=== PATIENT | male | born 1995 | race Caucasian/White ===

== ENCOUNTER 2016-04-11 12:00 | Inpatient (IN) | payer OTHER ==
[2016-04-11] MEDS ORDERED: Tetan/Diph/Pertus SYR(Tdap)* 0.5 ML SYR(BOOSTRIX) use SYR IM ONE (12:15)
[2016-04-11 13:16] LABS: Hematocrit 42 % (42-52); Hemoglobin 14.1 g/dl (14.0-18.0); Mean Corpuscular HGB Conc 34 g/dl (31-36); Mean Corpuscular Hemoglobin 30 pg (27-31); Mean Corpuscular Volume 88 fL (80-94); Mean Platelet Volume 8 um3 (7.4-10.4); Red Cell Distribution Width 14 % (10.5-15); White Blood Count 8.3 10^3/ul (3.5-10.8)
[2016-04-11 13:26] LABS: Urine Bilirubin Negative (Negative); Urine Glucose Negative (Negative); Urine Nitrite Negative (Negative)
[2016-04-11 13:34] LABS: ALT 23 U/L (7-52); AST 19 U/L (13-39); Albumin 4.3 g/dL (3.2-5.2); Alkaline Phosphatase 48 U/L (34-104); Anion Gap 3 mmol/L (2-11); BUN/Creatinine Ratio 22.5 (8-20); Blood Urea Nitrogen 20 mg/dL (6-24); CO2 Carbon Dioxide 28 mmol/L (22-32); Calcium 9.4 mg/dL (8.6-10.3); Chloride 106 mmol/L (101-111); EGFR African American 138.8 (>60); EGFR Non-African American 107.9 (>60); Globulin 2.4 g/dL (2-4); Glucose 101 mg/dL (70-100); Potassium 4.1 mmol/L (3.5-5.0); Sodium 137 mmol/L (133-145); Total Protein 6.7 g/dL (6.4-8.9)
[2016-04-11 13:45] LABS: Acetaminophen < 15 mcg/mL; Alcohol < 10 mg/dL (<10); Salicylate < 2.50 mg/dL (<30)
[2016-04-11 13:46] LABS: Benzodiazepine Urine Screen Presumptive Positive (None Detect)
[2016-04-11 13:55] LABS: TSH (Thyroid Stimulating Horm) 1.31 mcIU/mL (0.34-5.60)
[2016-04-11] MEDS ORDERED: ALPRAZolam TAB* 0.5 MG PO ONE ×2 (18:33→21:23)
[2016-04-11] MEDS ORDERED: Nicotine Inhaler* 10 MG AMP INH ONE (20:05)
[2016-04-11] MEDS ORDERED: Mouth Piece, Nicotine* 1 EACH CARTRIDGE ONE (20:09)
[2016-04-11] MEDS ORDERED: Mouth Piece, Nicotine* 1 EACH CARTRIDGE INH ONE (20:10)
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
[2016-04-11] MEDS ORDERED: Al Hydrox/Mg Hydrox/Simet LIQ* 30 ML UDC PO PRN (22:33)
[2016-04-11] MEDS ORDERED: Acetaminophen TAB* 325 MG PO PRN (22:33)
[2016-04-11] MEDS ORDERED: clonazePAM TAB(*) 0.5 MG ONE (22:36)
[2016-04-11] MEDS ORDERED: Nicotine GUM* 2 MG ONE (22:37)
[2016-04-11] MEDS ORDERED: Montelukast Sodium TAB* 10 MG ONE (22:37)
[2016-04-11] MEDS ORDERED: clonazePAM TAB(*) 1 MG ONE (22:37)
[2016-04-11] MEDS ORDERED: Nicotine Inhaler* 10 MG AMP ONE (22:37)
[2016-04-11] MEDS: Nicotine GUM* 2 MG PO PRN (22:38)
[2016-04-11] MEDS: Montelukast Sodium TAB* 10 MG PO SCH (22:38)
[2016-04-11] MEDS: clonazePAM TAB(*) 0.5 MG PO SCH (22:38)
[2016-04-11] MEDS: Nicotine Inhaler* 10 MG AMP INH PRN (23:47)
[2016-04-11] MEDS ORDERED: QUEtiapine TAB* 25 MG ONE (23:49)
[2016-04-12] MEDS: Nicotine Inhaler* 10 MG AMP INH PRN ×8 (02:20→23:25)
[2016-04-12] MEDS ORDERED: Influenza VAC *QUAD* 2016-17* 0.5 ML SYRINGE IM ONE (09:00)
[2016-04-12] MEDS: Divalproex ER TAB(*) 500 MG PO SCH (09:10)
[2016-04-12] MEDS: Vitamin THERAPEUTIC TAB PO SCH (09:10)
[2016-04-12] MEDS: FLUoxetine CAP* 20 MG PO SCH (09:11)
[2016-04-12] MEDS: clonazePAM TAB(*) 0.5 MG PO SCH ×3 (09:11→20:58)
[2016-04-12] MEDS ORDERED: Mouth Piece, Nicotine* 1 EACH CARTRIDGE ONE (09:28)
[2016-04-12] MEDS: Nicotine GUM* 2 MG PO PRN (13:43)
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
[2016-04-12] MEDS: Silver Sulfadiazine 1%* 20 GM TOPICAL SCH (20:46)
[2016-04-12] MEDS: Montelukast Sodium TAB* 10 MG PO SCH (20:58)
[2016-04-13 07:59] VITALS: BP 128/65
[2016-04-13] MEDS: clonazePAM TAB(*) 0.5 MG PO SCH (08:08)
[2016-04-13] MEDS: FLUoxetine CAP* 20 MG PO SCH (08:08)
[2016-04-13] MEDS: Divalproex ER TAB(*) 500 MG PO SCH (08:08)
[2016-04-13] MEDS: Vitamin THERAPEUTIC TAB PO SCH (08:09)
[2016-04-13] MEDS: Nicotine Inhaler* 10 MG AMP INH PRN ×2 (08:10→15:22)
[2016-04-13] MEDS: Silver Sulfadiazine 1%* 20 GM TOPICAL SCH (08:59)
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
--- NOTE | 2016-04-13 15:17 | DS ---
Subjective - Subjective Service Types: [address] [facility] Day Mgmt complex over 30 min Discharge Date: 04/13/16 Subjective: Giovany reports that he feels safe and ready for discharge in the setting of meeting with his mother, liaison planner Lorie Sonny and the undersigned. He denies any impulse toward SIB and denies any SI. He commits to aftercare plans to intake at [facility] [place], follow up on Monday with psychiatrist Dr Umana, and referral to a DBT group in this community. He says he will not seek benzodiazepines, stimulants or marijuana and will abstain from all of these. He reports that he had been selling the benzodiazepines he had received from Dr Ortega. He reports he had not been using them himself except for on a very occasional basis, about 2 to 2 1/2 mg total weekly dose of Xanax only. He reports that he will be forthcoming to his mother if he has any recurrence of urge to self-harm or any occurrence of thoughts to kill himself or any other dangerous intent or plan. He reports having a good supply on hand of all medications prescribed to him by Dr Umana (Depakote, Prozac and Zyprexa). In our meeting we discussed the likelihood that his psychiatric symptoms may be related to his TBI, and the need for him to be patient with himself and to develop strategies to offset the deficits that may have been produced by his TBI. We discussed in particular his tendency toward prevarication versus confabulation, and the need to identify and correct this behavior as it occurs without self-recrimination, which likely impedes its correction. He has agreed to surrender any lighters he has to reduce the likelihood of burning himself again. Objective - Appearance Appearance: Healthy Appearing Dysmorphic Features: No Hygiene: Normal Grooming: Well Kept - Behavior Psychomotor Activities: Normal Exhibits Abnormal Movement: No - Attitude and Relatedness Attitude and Relatedness: Cooperative Eye Contact: Fair - Mood Patient's Decription of Mood: "Fine" - Affect Observed Affect: Fair Affect Consistent with: Euthymia - Thought Process Patient's Thought Process: Coherent, Goal Directed Thought Content: No Passive Wish, No Suicidal Planning, No Homicidal Ideation, No Paranoid Ideation - Sensorium Experiencing Hallucinations: No, Sensorium is Clear Type of Hallucinations: Visual: No, Auditory: No, Command: No - Level of Consciousness Level of Consciousness: Alert Orientation: Yes Intact, Yes Orientated to Time, Yes Orientated to Place, Yes Orientated to Person - Impulse Control Impulse Control: Intact - Insight and Judgement Insight and Judgement: Fair - per current report, historically poor at frequent intervals - Group Participation Particating in Group Activities: No - Medication Management Medication Management Adherence: Yes Treatment Course & Assessment Clinical Course & Impression: Day of admission, 04.12.16: Giovany is a 21-year-old, single, white 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 He was admitted due to concerns raised with both the physician at [facility] and the emergency department physician here that the carias that he had inflicted on his arm were extremely painful and indicative of the potential for dangerous degree of self- harm. He has been admitted for safety, assessment and treatment. We are gathering collateral. The social scientist on the case, Myranda Mackey, has spoken with his mother, Maira Flores. Maira confirms the history that I have gotten from Giovany, but also endorses a great deal more concern for his safety that he does. She also states that his father may not know too much about what has been going on with Giovany as he has not been much involved with him in recent weeks. It is my recommendation that Giovany complete a full assessment here, including an MMPI, and be observed on the unit to gather more evidence to ensure that he is giving no indications of likelihood of more dangerous behavior than he has demonstrated so far. It is also my strong recommendation that he no longer take any amphetamines or stimulants of any sort or any benzodiazepines. I think he would well served by referral to Dr. Lanza of [employer] and I have told him so. He does state that he would like to have somebody in the area to carry his psychiatric care forward, although Dr. Umana agrees to continue to care for Giovany if that is Giovanys preference. It is quite clear that he has cluster B traits that have at least re-emerged if they have not been, in fact, in constant play in his life. He does talk about having had Dialectical Behavioral Therapy, and I would urge him to renew his efforts in this direction against these cluster B traits, with the possibility of borderline personality disorder or some other definite cluster B diagnosis. He reports that his OCD symptoms are in abeyance. He reports continued difficulties with anxiety. For now, I will recommend continuation of the Depakote and the Prozac. Dr. Umana reports that he started the Depakote against impulsivity and anger with working diagnosis of IED. Length of hospitalization as per results of a full assessment. Day 2, 04.13.16: Giovany presents to me that he is recovering and has no impulse to harm himself and no thoughts of suicide. He reports stable and adequate mood. Timeline from mother indicates detriment from readiness to end treatment relationships impulsively perhaps, also indicates more self-harm and SI than he had told me of on intake. MMPI confirms clinical picture of a guarded young man prone to displace blame, with propensity toward violent outbursts, also subjective experience of anxiety. Will have family meeting with Giovany and his mother today to plan discharge. After family meeting Day 2, 04.13.16: Giovany is cleared for discharge. He is assessed as at no acutely increased risk of harm to self or others and capable of adequate self-care to avoid harm. He denies any active symptom burden of his mental illness. He voices commitment to safety plan primarily through communication with his mother, who came here from [facility] to facilitate his safe discharge. She is well informed about her son' s illness, and committed to providing support for his treatment. They will negotiate whether he will stay tonight in his student housing with his good friends, or go with her to stay in a hotel. They will attend an appointment with the [employer] Crisis Counselor Cori Waller tomorrow, and follow up with aftercare arrangements including [facility], [facility], and Monday appointment with Dr Umana. Giovany says he is committed to doing whatever is necessary to get better. He remains at moderate chronic risk of self-harm given his history of self-harm, and at low to moderate chronic risk of complications of self-harm including , and of suicide. These risks are reduced by his mother's strong support in his aftercare. He can reduce these risks himself by adhering to his aftercare and safety plans following discharge, including following up with [facility] or his PCP to ensure his self-inflicted carias are adequately healed. Merits Inpatient Hospitalization: No Clear for Discharge: Adequate Clinical Respons, Acceptable Safety Profile, Low Utility of Inpt Care Inpatient DSM-IV Dx: OCD, IED per history, Cannabis use disorder, r/o TBI- related impulsivity, cluster B traits - [place] II MR and Personality Disorder: rule out Cluster B/C personality disorder - [place] III Medical Illness: s/p self-inflicted carias on arm - [place] IV Stressors: academics, his own actions threatening friendships Family: strongly supportive mother Primary Support Group: mother, college friends - [place] V [id number]: 65 Estimate of Highest-Past Year: 70 Discharge Planning - Discharge Planning Discharge Plan: Outpatient Follow Up Outpatient Program: [facility], [facility] group, Dr Umana Recommendations for Continuing Care: Medication Management, Psychotherapy, Substance Abuse Counseling, Routine Metabolic Monitoring - while on Depakote and Zyprexa, Specialty Followup - [facility] TBI group/Dr Mendiola Medications: Divalproex Sodium (Depakote Er Tab(*)) 1,000 mg PO DAILY [facility] Last Admin: 04/13/16 08:08 Dose: 1,000 mg Fluoxetine HCl (Prozac Cap*) 60 mg PO DAILY [facility] Last Admin: 04/13/16 08:08 Dose: 60 mg Montelukast Sodium (Singulair Tab*) 10 mg PO BEDTIME [facility] Last Admin: 04/12/16 20:58 Dose: 10 mg Refuses prescription for nicotine replacement or other stop-smoking aid, prefers to use his own nicotine vaporizer for replacement. Olanzapine (Zyprexa * Tab Odt) 5 mg PO BEDTIME [facility] Silver Sulfadiazine (Silvadine 1%*) 1 applic TOPICAL BID [facility] Last Admin: 04/13/16 08:59 Dose: 1 applic Discharge Planning: Prescriptions provided for discharge [x] Yes - only Silver Sulfadiazine 1% [] No Follow up care details as per social work arrangements. Patient response to discharge plan: [x] eager for discharge [x] agreeable with discharge plan [] ambivalent about discharge [] disagrees with discharge today
[2016-04-13] MEDS ORDERED: OLANzapine TAB*ODT* 5 MG PO SCH (21:00)
[2016-04-13] MEDS ORDERED: clonazePAM TAB(*) 1 MG PO SCH (21:00)
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
== END 2016-04-13 17:00 | disposition home or self-care (01) | DRG 755 ==
LOC: ED 12:00 → BSU 21:54
PROVIDERS: ADMIT Psychiatry & Neurology Psychiatry; ATTEND Psychiatry & Neurology Psychiatry
DX: F42.9 Obsessive-compulsive disorder, unspecified (principal); F17.210 Nicotine dependence, cigarettes, uncomplicated; F63.81 Intermittent explosive disorder; F12.10 Cannabis abuse, uncomplicated; T22.039A Burn of unspecified degree of unspecified upper arm, initial encounter; X76.XXXA Intentional self-harm by smoke, fire and flames, initial encounter; X76.XXXD Intentional self-harm by smoke, fire and flames, subsequent encounter; Y92.009 Unspecified place in unspecified non-institutional (private) residence as the place of occurrence of the external cause; Z87.820 Personal history of traumatic brain injury
CPT/HCPCS: 36415; 80053; 80164; 80307; 80320; 80329; 81003; 84443; 85025; 96102; 99222; 99238; A9270-GY; G0480